=== PATIENT | female | born 1975 | race Caucasian/White ===

== ENCOUNTER 2025-05-12 09:20 | Emergency (ER) | payer OTHER ==
[~2025-05-12] VITALS: Ht 165.1 cm; Wt 59.0 kg
[2025-05-12 09:23] VITALS: O2SAT 98
[2025-05-12 09:45] VITALS: TEMP 36.9; O2SAT 100
[2025-05-12] MEDS: MORPHINE SULFATE 4 MG/ML INJ (FOR IV/IM USE) IV ONE ×2 (09:53→11:46)
[2025-05-12] MEDS: ONDANSETRON HCL 4MG/2ML INJ IV ONE (09:53)
[2025-05-12 10:09] LABS: HEMATOCRIT. 36.8 % (36.0-48.0); HEMOGLOBIN. 12.4 g/dL (12.0-16.0); MEAN PLATELET VOLUME 10.2 fl (7.4-10.4); PLATELET 315 x1000/uL (130-400); RED BLOOD CELL COUNT 4.03 mill/uL (4.2-5.4); RED CELL DISTRIBUTION WIDTH 13.3 % (11.6-14.6)
[2025-05-12 10:23] LABS: HCG SCREEN NEGATIVE
[2025-05-12 10:28] LABS: CREATININE 0.7 mg/dL (0.6-1.0)
[2025-05-12 10:29] LABS: UREA NITROGEN BLOOD 12 mg/dL (9-23)
[2025-05-12 10:30] LABS: ASPARTATE AMINOTRANSFERASE 14 IU/L (<34); BILIRUBIN DIRECT 0.4 mg/dL (<=3.0)
[2025-05-12 10:31] LABS: BILIRUBIN TOTAL 1.4 mg/dL (0.1-1.0); PROTEIN TOTAL 7.1 g/dL (6.0-8.3)
[2025-05-12] MEDS: METRONIDAZOLE 500 MG PREMIX 100 ML IV ONE ×2 (11:23→11:38)
[2025-05-12] MEDS ORDERED: BUPIVACAINE HCL/PF 0.5% (5MG/ML) 10ML ONE (11:40)
[2025-05-12] MEDS ORDERED: SKIN ADHESIVE 0.7 GM EA TOP ONE (11:40)
[2025-05-12] MEDS: LEVOFLOXACIN 750MG PREMIX 150 ML IV ONE (11:46)
[2025-05-12 12:10] LABS: BAND% 8.0 % (1.0-6.0); LYMPHOCYTES % MANUAL 4.0 % (20.0-60.0); MONOCYTES % MANUAL 4.0 % (2.0-8.0); NEUTROPHILS % MANUAL 84.0 % (45.0-75.0); PLATELET ESTIMATE NORMAL
[2025-05-12] MEDS ORDERED: ONDANSETRON HCL 4MG/2ML INJ IV PRN (12:15)
[2025-05-12] MEDS ORDERED: DEXTROSE 50% WATER 50ML SYRINGE IV PRN (12:15)
[2025-05-12] MEDS ORDERED: KETOROLAC 30MG/ML VIAL IV PRN (12:15)
[2025-05-12] MEDS ORDERED: IPRATROPIUM/ALBUTEROL 0.5-3(2.5)MG/3ML NEB HHN PRN (12:15)
[2025-05-12] MEDS ORDERED: BLOOD SUGAR DIAGNOSTIC STRIP TEST SCH (12:15)
[2025-05-12] MEDS ORDERED: DEXAMETHASONE 4MG/ML 1ML VIAL ONE (12:33)
[2025-05-12] MEDS ORDERED: ONDANSETRON HCL 4MG/2ML INJ ONE (12:33)
[2025-05-12] MEDS ORDERED: LIDOCAINE HCL 1% 10 MG/ML 10ML VIAL ONE (12:33)
[2025-05-12] MEDS ORDERED: KETOROLAC 30MG/ML VIAL ONE (12:33)
[2025-05-12] MEDS ORDERED: MIDAZOLAM HCL 2 MG/2 ML VIAL ONE (12:34)
[2025-05-12] MEDS ORDERED: HYDROMORPHONE HCL/PF 1MG/ML INJ ONE (12:34)
[2025-05-12] MEDS ORDERED: PROPOFOL 200MG/20ML VIAL IV ONE (12:34)
[2025-05-12] MEDS ORDERED: ROCURONIUM BROMIDE 10MG/ML VIAL 5ML IV ONE (12:36)
[2025-05-12] MEDS ORDERED: FAMOTIDINE 20MG/2ML VIAL IV ONE (12:40)
[2025-05-12] MEDS ORDERED: ACETAMINOPHEN 1000MG/100ML 100 ML IV ONE (12:40)
[2025-05-12] MEDS ORDERED: HYDROMORPHONE HCL/PF 1MG/ML INJ IV PRN (12:45)
[2025-05-12] MEDS ORDERED: HYDRALAZINE 20MG/ML VIAL IV PRN ×2 (12:45)
[2025-05-12] MEDS ORDERED: LABETALOL 5MG/ML 4ML INJ IV PRN (12:45)
[2025-05-12 12:46] VITALS: BP 111/69; PULSE 79; RESP 15; TEMP 98.42
[2025-05-12] MEDS ORDERED: EPHEDRINE SULFATE 50MG/ML VIAL ONE (13:10)
[2025-05-12] MEDS ORDERED: ACETAMINOPHEN WITH CODEINE 300/30MG TABLET PO SCH (14:45)
[2025-05-12] MEDS: ONDANSETRON HCL 4MG/2ML INJ IV PRN (15:25)
== END 2025-05-12 12:44 | disposition admitted as inpatient to this hospital (09) ==
LOC: ER 09:20 → EDBEDREQ 12:21 → ER 12:44 → CMPBEDREQ 05-13 16:22
DX: K35.80 Unspecified acute appendicitis (principal); R11.0 Nausea; Z79.899 Other long term (current) drug therapy
CPT/HCPCS: 80076; 80048; 83036; 84703; 83690; 85025; 36415; 88304; 74176; 96367; 96365; 96375; 96376; 99285; J0665; J1100; J3490 ×3; J1308; J1885; J2003; J2250; J2405; J2704; J1171; J2270; J1956; A4217; Z7610 ×25; J7030; J0131

== ENCOUNTER 2025-05-19 05:12 | Emergency (ER) | payer OTHER ==
[~2025-05-19] VITALS: Ht 170.2 cm; Wt 70.0 kg
[2025-05-19 05:14] VITALS: O2SAT 99
[2025-05-19 05:56] LABS: BASOPHILS % 0.7 % (0.0-2.0); EOSINOPHILS % 1.7 % (0.0-5.0); HEMATOCRIT. 37.1 % (36.0-48.0); HEMOGLOBIN. 12.2 g/dL (12.0-16.0); LYMPHOCYTES % 14.4 % (20.0-50.0); MEAN PLATELET VOLUME 8.4 fl (7.4-10.4); MONOCYTES % 9.3 % (2.0-8.0); NEUTROPHILS % 73.9 % (40.0-76.0); PLATELET 582 x1000/uL (130-400); RED BLOOD CELL COUNT 4.07 mill/uL (4.2-5.4); RED CELL DISTRIBUTION WIDTH 13.4 % (11.6-14.6)
[2025-05-19] MEDS: MORPHINE SULFATE 4 MG/ML INJ (FOR IV/IM USE) IV ONE ×2 (05:57→07:37)
[2025-05-19 06:10] LABS: CREATININE 0.5 mg/dL (0.6-1.0); UREA NITROGEN BLOOD 6 mg/dL (9-23)
[2025-05-19 06:12] LABS: ASPARTATE AMINOTRANSFERASE 110 IU/L (<34); BILIRUBIN DIRECT 0.1 mg/dL (<=3.0); BILIRUBIN TOTAL 0.5 mg/dL (0.1-1.0); PROTEIN TOTAL 7.0 g/dL (6.0-8.3)
[2025-05-19 06:37] LABS: HCG SCREEN NEGATIVE
[2025-05-19] MEDS: KETOROLAC 15MG/ML VIAL IV ONE (09:55)
[2025-05-19 10:00] VITALS: TEMP 36.9
[2025-05-19 12:31] VITALS: BP 125/88; PULSE 78; RESP 18; O2SAT 96
== END 2025-05-19 12:31 | disposition short-term general hospital (02) ==
LOC: ER 05:12 → CANBEDREQ 09:42 → ER 12:31
DX: R10.A3 Flank pain, bilateral (principal); Z90.49 Acquired absence of other specified parts of digestive tract
CPT/HCPCS: 80076; 80048; 84703; 83690; 85025; 36415; 74176; 96374; 96375; 96376; 99285; J1885; J2270; Z7610 ×2